=== PATIENT | female | born 1935 | race Caucasian/White ===

== ENCOUNTER 2022-04-22 10:48 | Inpatient (IN) | payer OTHER ==
[2022-04-17 12:25] LABS: BASOPHILS # (AUTO) 0.1 X10'3 (0-0.2); BASOPHILS % (AUTO) 0.9 % (0-1); CLARITY,URINE CLEAR (Clear); COLOR,URINE YELLOW (Yellow); EOSINOPHILS # (AUTO) 0.1 X10'3 (0-0.9); EOSINOPHILS % (AUTO) 1.6 % (0-6); GLUCOSE, URINE NEGATIVE (Neg); KETONES,URINE NEGATIVE (Neg); LEUKOCYTE ESTERASE ,URINE NEGATIVE (Neg); LYMPHOCYTES # (AUTO) 1.6 X10'3 (1.1-4.8); MEAN CORPUSCULAR HEMOGLOBIN 28.7 PG (27.0-31.0); MEAN PLATELET VOLUME 8.4 FL (7.4-10.4); MONOCYTES # (AUTO) 0.8 X10'3 (0-0.9); MONOCYTES % (AUTO) 9.7 % (2-12); NEUTROPHILS # (AUTO) 5.6 X10'3 (1.8-7.7); NEUTROPHILS % (AUTO) 67.8 % (42-75); NITRITES, URINE NEGATIVE (Neg); OCCULT BLOOD,URINE NEGATIVE (Neg); PRE OP HEMATOCRIT 32.5 % (35.0-45.0); PRE OP PLATELET COUNT 346 X10'3 (140-440); PROTEIN,URINE NEGATIVE (Neg); RED BLOOD COUNT 3.74 X10'6 (4.20-5.60); RED CELL DISTRIBUTION WIDTH 14.2 % (11.5-14.5); UROBILINOGEN,URINE 0.2 E.U/dL (0.2-1.0)
[2022-04-17 12:27] LABS: PRE OP HEMOGLOBIN 10.7 g/dL (12.0-16.0)
[2022-04-17 12:29] LABS: UA COLLECTION TYPE CLN CATCH MIDSTREAM
[2022-04-17 12:53] LABS: ALBUMIN 3.1 G/DL (3.4-5.0); ALBUMIN/GLOBULIN RATIO 0.8 (1.1-1.5); ALKALINE PHOSPHATASE 94 IU/L (46-116); BLOOD UREA NITROGEN 11 MG/DL (7-18); BUN/CREATININE RATIO 15.1 (6.6-38.0); CALCIUM 9.1 MG/DL (8.5-10.1); CHLORIDE 99 MMOL/L (99-107); CREATININE 0.73 MG/DL (0.40-0.90); PRE OP ALT 15 U/L (30-65); PRE OP ANION GAP 6 (8-16); PRE OP AST 17 U/L (10-37); PRE OP BILIRUB, TOTAL 0.5 MG/DL (0.0-1.0); PRE OP GLUCOSE 110 MG/DL (70-104); PRE OP SODIUM 138 MMOL/L (135-145); TOTAL CARBON DIOXIDE 32.7 MMOL/L (24-32); TOTAL PROTEIN 6.8 G/DL (6.4-8.2); eGFR 76 ML/MIN
[2022-04-17 12:55] LABS: PRE OP POTASSIUM 2.7 MMOL/L (3.4-5.1)
[2022-04-22] VITALS (16 sets, daily range): BP systolic 143–171; BP diastolic 68–92
[~2022-04-22] VITALS: Ht 157.5 cm; Wt 49.4 kg
[~2022-04-22 10:48] MED LIST: AMIT10TA6 PO; AMLO5TAB16 PO; ATOR40TA72 PO; AZIL40TA PO; CLOP75TA34 PO; DOPamine/D5W 400mg/250ml bag IV ONE; amiodarone 50MG/ML inj IV ONE; calcium chloride 100 MG/1 ML inj IV ONE; ceFAZolin inj. 2,000 MG in dextrose 5%-water 100 ML IV ONE; epiNEPHrine 0.1mg/ml 10ml syringe ONE; famotidine 20mg tablet PO ONE; sodium bicarbonate (8.4%) 1 mEq/ml syringe ONE
--- NOTE | 2022-04-22 11:20 | NUR ---
I WAS CALLED TO THE HALLWAY BY [facility], FOUND PT LYING FACE DOWN IN THE HALLWAY. [facility] STATES PT WAS WALKING WITH HER FROM ADMITTING TO THE PAS UNIT AND APPEARED TO TRIP ON HER FLIP FLOPS, WAS HOLDING A BAG TO HER CHEST AND FELL FACE DOWN. NO LOSS OF CONSCIOUSNESS NOTED. PT ANSWERED QUESTIONS APPROPRIATELY. LACERATIONS NOTED OVER AND UNDER LEFT EYE AND ON RIGHT KNUCKLES. PT DENIES NECK OR BACK PAIN, ROLLED SLOWLY TO HER BACK. AFTER LYING ON HER BACK PT STATES SHE FEELS BACK PAIN FROM THE "HARD FLOOR", ER CALLED TO ASSES PT- WAS TOLD TO BRING PT TO ER VIA GURNEY. PT ASSISTED TO HER FEET AND SHE AMBULATED TO A NEARBY GURNEY. LACERATIONS TO HAND AND FACE NO LONGER BLEEDING. PT TAKEN TO THE ER BED VIA GURNEY WITH PRESENT, REPORT GIVEN TO MARY ORDAZ WHO ASSUMED PT CARE AT 1135.
--- NOTE | 2022-04-22 14:05 | NUR ---
PT ARRIVED VIA W/C AFTER BEING MEDICALLY RELEASED FROM ER S/P FALL, SEE PREVIOUS NOTES. RT KNUCKLES WITH SMALL ABRASIONS NOTED, STERI-STRIP X1 BELOW LEFT EYE WITH SMALL AMT BRUISING PRESENT, LACERATION LEFT EYEBROW WITH APPRX 2 STITCHES - PLEASE REFER TO ER DOCUMENTATION. PT ALERT AND ORIENTED. AMBULATED TO BR, VOID QS, PRESENT. PER DR PADILLA, SURGERY TO PROCEED SCHEDULED. REFER TO PAS ADMIT FOR FURTHER DOCUMENTATION. Addendum: 04/22/22 at 1606 by Carolyn Espionsa RN Amended: Links added.
[2022-04-22] MEDS ORDERED: POTA-207 PO (14:36)
[2022-04-22] MEDS: ringers solution, lacted 1,000 ML IV SCH ×2 (14:38→20:39)
[2022-04-22 15:07] LABS: ISTAT ANION GAP 12 (8-12); ISTAT BUN 10 mg/dL (7-18); ISTAT CL 103 mmol/L (99-107); ISTAT CREATININE 0.6 mg/dL (0.6-1.1); ISTAT GLUCOSE 141 mg/dL (70-105); ISTAT HGB 14.3 g/dl (12.0-16.0); ISTAT Hct 42 %PCV (35-48); ISTAT IONIZED CALCIUM 1.26 mmol/L (1.03-1.32); ISTAT K 4.4 mmol/L (3.5-5.1); ISTAT NA 137 mmol/L (135-145); ISTAT TOTAL CO2 22 mmol/L (24-32); ISTAT eGFR > 90 ML/MIN; POC BUN/CREATININE RATIO 16.7 (6.6-38.0)
[2022-04-22] MEDS ORDERED: labetalol 20mg/4ml (5mg/ml) syringe IV PRN (15:25)
[2022-04-22] MEDS ORDERED: hydrALAZINE 20mg/ml inj. IV PRN (15:25)
[2022-04-22] MEDS ORDERED: ringers solution, lacted 1,000 ML IV SCH (15:25)
[2022-04-22] MEDS ORDERED: morphine 4 MG/ML inj SYRINge IV PRN (15:25)
[2022-04-22] MEDS ORDERED: fentaNYL/PF 50MCG/1 ML 2ML syringe IV PRN ×2 (15:25)
[2022-04-22] MEDS ORDERED: ondansetron/PF 4mg/2ml inj IV PRN ×2 (15:25→17:40)
[2022-04-22] MEDS ORDERED: BUPIVAcaine/PF 2.5 mg/ml (0.25%) 30ml vial ONE (16:45)
[2022-04-22] MEDS ORDERED: dexamethasone sod phosphate 10mg/ml inj ONE (17:09)
[2022-04-22] MEDS ORDERED: sevoflurane 250ml liquid IH ONE (17:09)
[2022-04-22] MEDS ORDERED: fentaNYL/PF 50MCG/1 ML 2ML syringe ONE (17:15)
[2022-04-22] MEDS ORDERED: midazolam 1 mg/ML 2ml injection ONE (17:15)
[2022-04-22] MEDS ORDERED: rocuronium 10mg/ml inj IV ONE (17:20)
[2022-04-22] MEDS ORDERED: LIDOcaine 1%/PF 5ML 10 MG/ML VIAL ONE (17:20)
[2022-04-22] MEDS ORDERED: ondansetron/PF 4mg/2ml inj ONE (17:20)
[2022-04-22] MEDS ORDERED: propofol inj 20 ML IV ONE (17:21)
[2022-04-22] MEDS ORDERED: POTASSIUM BICARB 20meq eff tab 20 MEQ TABLET.EFF PO PRN ×2 (17:40)
[2022-04-22] MEDS ORDERED: magnesium 4gm in 100ml NS 100 ML IV PRN (17:40)
[2022-04-22] MEDS ORDERED: metoclopramide 5 mg/ml inj IV PRN (17:40)
[2022-04-22] MEDS ORDERED: magnesium 2GM in 50ml NS 50 ML IV PRN (17:40)
[2022-04-22] MEDS ORDERED: magnesium Cl slow-release 64mg tablet PO PRN (17:40)
[2022-04-22] MEDS ORDERED: potassium CL 10mEq/100ml bag 100 ML IV PRN (17:40)
[2022-04-22] MEDS ORDERED: morphine 2 MG/ML inj. syringe IV PRN (17:40)
[2022-04-22] MEDS ORDERED: glycopyrrolate 0.2mg/ml inj ONE (17:50)
--- NOTE | 2022-04-22 18:03 | NUR ---
Received from OR via SURGICAL BED , accompanied by Anesthesiologist MIS and report given by Anesthesiolgist. PATIENT WITH 20G PIV IN LEFT UE RUNNING NS AT 10. ABDOMINAL DRESSINGS ARE ALL CDI AND G TUBE PRESENT. 10L MASK ON WITH 100% SATURATIONS. VSS. SCDS DONNED. Addendum: 04/22/22 at 1810 by Andrew Nielson RN, RN Amended: Links added.
--- NOTE | 2022-04-22 18:03 | NUR ---
Received from OR via SURGICAL BED , accompanied by Anesthesiologist MIS and report given by Anesthesiolgist. PATIENT WITH 20G PIV IN LEFT UE RUNNIN NS AT 10. VSS. GTUBE AND DRESSING PRESENT TO ABDOMEN THAT ARE CDI. SCDS DONNED AND POSITIONED TO COMFORT. Addendum: 04/22/22 at 1820 by Andrew Nielson RN, RN Amended: Links added.
[2022-04-22] MEDS: morphine 2 MG/ML inj. syringe IV PRN (18:29)
--- NOTE | 2022-04-22 19:03 | NUR ---
PATIENT HAS MET ALL CRITERIA FOR TRANSFER TO THE SURGICAL/[facility]/PCU/ORTHO/ICU FLOOR. VSS. DRESSINGS INTACT. BED LOW, CALL LIGHT PRESENT AND 2 RAILS UP. RN PRESENT TO ACCEPT CARE OF PATIENT AND REPORT HAS BEEN CALLED. ALL QUESTIONS ANSWERED TO ACCEPTING ORLIN BRYANT . Addendum: 04/22/22 at 1952 by Andrew Vasques - ORLIN RN Amended: Links added.
[2022-04-22] MEDS: K and/or MAG REPLACEMENT MC SCH (20:00)
--- NOTE | 2022-04-22 20:00 | NUR ---
patient oriented to room, given ice chips. and son at bedside. requests to be present when speech and dietary evaluate patient.
[2022-04-22] MEDS: normal saline 1000ml 1,000 ML IV SCH (20:39)
[2022-04-22] MEDS ORDERED: amitriptyline 10mg tablet PO SCH (21:00)
[2022-04-22] MEDS: acetaminophen 650mg rectal suppository RC PRN (22:41)
[2022-04-23] VITALS (7 sets, daily range): BP systolic 82–152; BP diastolic 36–77
--- NOTE | 2022-04-23 06:22 | NUR ---
reported to days. noted pt resting w/o distress. PT to work with patient this am. anticipate ST and dietary consult for gentle nutrition supplemental feedings.
[2022-04-23] MEDS: morphine 2 MG/ML inj. syringe IV PRN ×3 (06:55→20:24)
[2022-04-23 07:14] LABS: BASOPHILS % (AUTO) 0.4 % (0-1); EOSINOPHILS % (AUTO) 0 % (0-6); HEMATOCRIT 33.2 % (35.0-45.0); HEMOGLOBIN 10.8 g/dl (12.0-16.0); LYMPHOCYTES # (AUTO) 0.9 X10'3 (1.1-4.8); LYMPHOCYTES % (AUTO) 7.6 % (21-51); MEAN CORPUSCULAR HEMOGLOBIN 28.7 PG (27.0-31.0); MEAN CORPUSCULAR HGB CONC 32.7 g/dL (33.0-36.5); MEAN CORPUSCULAR VOLUME 87.9 FL (78-98); MEAN PLATELET VOLUME 8.9 FL (7.4-10.4); MONOCYTES # (AUTO) 0.6 X10'3 (0-0.9); MONOCYTES % (AUTO) 5.2 % (2-12); NEUTROPHILS # (AUTO) 10.5 X10'3 (1.8-7.7); NEUTROPHILS % (AUTO) 86.8 % (42-75); PLATELET COUNT 414 X10'3 (140-440); RED BLOOD COUNT 3.77 X10'6 (4.20-5.60); RED CELL DISTRIBUTION WIDTH 14.3 % (11.5-14.5); WHITE BLOOD COUNT 12.1 X10'3 (4.5-11.0)
[2022-04-23 07:31] LABS: ALANINE AMINOTRANSFERASE 14 U/L (12-78); ALBUMIN 2.9 G/DL (3.4-5.0); ALBUMIN/GLOBULIN RATIO 0.8 (1.1-1.5); ALKALINE PHOSPHATASE 94 IU/L (46-116); ANION GAP 9 (8-16); ASPARTATE AMINO TRANSFERASE 18 U/L (10-37); BILIRUBIN,TOTAL 0.7 MG/DL (0.1-1.0); BLOOD UREA NITROGEN 14 MG/DL (7-18); BUN/CREATININE RATIO 17.3 (6.6-38.0); CALCIUM 8.7 MG/DL (8.5-10.1); CHLORIDE 103 MMOL/L (99-107); CREATININE 0.81 MG/DL (0.40-0.90); GLUCOSE 140 MG/DL (70-104); MAGNESIUM 1.6 MG/DL (1.5-2.4); POTASSIUM 5.6 MMOL/L (3.5-5.1); SODIUM 136 MMOL/L (135-145); TOTAL CARBON DIOXIDE 23.8 MMOL/L (24-32); TOTAL PROTEIN 6.7 G/DL (6.4-8.2); eGFR 67 ML/MIN
[2022-04-23] MEDS: acetaminophen 650mg rectal suppository RC PRN (07:39)
[2022-04-23] MEDS ORDERED: AZILSARTAN MEDOXOMIL PO SCH (08:00)
[2022-04-23] MEDS: K and/or MAG REPLACEMENT MC SCH ×2 (08:00→20:00)
[2022-04-23] MEDS ORDERED: clopidogrel 75mg tablet PO SCH ×2 (08:00→10:53)
[2022-04-23] MEDS ORDERED: amLODIPine 5mg tablet PO SCH ×2 (08:00→10:52)
[2022-04-23] MEDS ORDERED: atorvastatin 20mg tablet PO SCH ×2 (08:00→10:53)
--- NOTE | 2022-04-23 09:36 | NUR ---
PAGER ID: [phone] MESSAGE: Josefa Remi [id number] NPO just had gtube placed. Can this pt. have her oral pills? Lisseth [phone]
--- NOTE | 2022-04-23 09:39 | NUR ---
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 Pt pending BSS with ST and s/p G-tube placement this admit. IBW +10% was used to calculate estimated nutrient needs as there's no documentation of how current wt was obtained, see TF recommendations below. Will adjust as appropriate pending scaled wt and BSS with ST should pt be appropriate for PO intake. Will continue to follow closely. Recommendations: 1) Continuous TF via G-tube using Jevity 1.2 with 55 mL/hr goal. To provide 1320 mL total volume/day, 1584 kcal, 73 g protein, and 1065 mL water 2) Additional 85 mL water flush Q4H; monitor serum Na 3) IF transitioning to bolus feeds: bolus feed TID using Jevity 1.2 with 2 cans (474 mL) BID and 1.5 cans (355 mL) QD. In total to provide 1303 mL total volume/day, 1567 kcal, 73 g protein, and 1050 mL water 4) IF bolus feeds: additional 55 mL before and after each bolus feed 5) Prealbumin q Wednesday/ 6) Daily scaled weights 7) Advance to regular diet as medically indicated if able to tolerate PO intake pending BSS with ST; monitor need to adjust TF recs if PO intake 8) Routine bowel USP BOLUS TF RECS: 1) Bolus feeding TID using Jevity 1.2 or equivalent. Begin at 124 mL bolus and advance by 50 mL each bolus feed as tolerated to goal: 2 cans (474 mL) BID and 1.5 cans (355 mL) QD totalling 5.5 cans (1303 mL total volume) 2) Additional 55 mL water flush before and after each bolus feed 3) Outpatient RD to titrate to goal rate and adjust recommendations as appropriate based on patient's estimated nutrient needs Addendum: 04/23/22 at [address] Amended: Links added.
--- NOTE | 2022-04-23 09:40 | NUR ---
Spoke with hospitalist on phone and he would like medications administered through g-tube. States he spoke with Arya yesterday and this was oked by surgeon. Call pharmacy to request order change and get clarification that medications can be crushed. Pharmacist states it will be about 20 min. before AM med PO orders switched to g-tube medications.
[2022-04-23] MEDS ORDERED: amitriptyline 10mg tablet NG SCH (10:12)
[2022-04-23] MEDS ORDERED: amLODIPine 5mg tablet NG SCH (10:13)
[2022-04-23] MEDS ORDERED: clopidogrel 75mg tablet NG SCH (10:20)
[2022-04-23] MEDS ORDERED: atorvastatin 20mg tablet NG SCH (10:20)
[2022-04-23] MEDS ORDERED: losartan 50mg tablet NG SCH (10:31)
[2022-04-23] MEDS ORDERED: HYDROcodone/acetaminophen 5mg/325mg tablet PO PRN (10:50)
[2022-04-23] MEDS ORDERED: losartan 50mg tablet PO SCH (10:53)
[2022-04-23 11:41] LABS: PREALBUMIN 15.3 MG/DL (19-36)
--- NOTE | 2022-04-23 14:12 | NUR ---
Tube feed started at 1400. 0 residual. Pt. tolerated 90ml water flush well. Rate will need to be changed to 55ml at 2200 if residuals and pt. allow. This will be goal rate for pt.
[2022-04-23] MEDS: normal saline 1000ml 1,000 ML IV SCH (14:32)
[2022-04-23] MEDS ORDERED: cefTRIAXone 1g/NS 100ml IVPB 100 ML IV SCH (16:35)
[2022-04-23] MEDS ORDERED: diatrozoate meglu/diatrozoate sod (37% iodine) 120ML oral solution PO ONE (16:45)
--- NOTE | 2022-04-23 16:55 | NUR ---
PAGER ID: [phone] MESSAGE: Josefa Khalil [id number] Cant take orders from a polygraph technician. Please call to clarify CT orders. Thanks Lisseth [phone]
[2022-04-23] MEDS ORDERED: diatr meglu/diatrizoate 30ml oral sol.-(3 dose) bottle PO SCH (17:25)
--- NOTE | 2022-04-23 17:44 | NUR ---
Pt. going down to CT. Tele aware.
--- NOTE | 2022-04-23 18:37 | NUR ---
Pt. bought back from CT scan. Rn who went down with pt. reports possible G-tube leak but CT scan report not up yet. G-tube feeding currently on hold. Report given to Paige ORDAZ.
[2022-04-23] MEDS: amitriptyline 10mg tablet PO SCH (20:24)
--- NOTE | 2022-04-23 20:39 | NUR ---
I spoke to and informed him that patient hadn't voided since this morning and bladder scan was >400 so he gave order for F/C. Also informed him what the CT scan showed regarding the Feeding Tube and he will call Dr Grabiel Dawn regarding this. I informed pt's nurse regarding this.
--- NOTE | 2022-04-23 21:00 | NUR ---
Patient in room ORTHO 4010. I have received report from ORLIN Wyatt and had the opportunity to ask questions and assume patient care.
[2022-04-23] MEDS ORDERED: FENTANYL CITRATE/PF 50 MCG/1 ML VIAL ONE (21:40)
[2022-04-23] MEDS ORDERED: midazolam 1 mg/ML 2ml injection ONE (21:40)
[2022-04-23] MEDS ORDERED: amiodarone in dextrose, iso-osm 360mg/200ml bag IV ONE (21:45)
[2022-04-23] MEDS ORDERED: sodium bicarbonate (8.4%) inj. 1 MEQ/ML ML ONE ×2 (21:45)
[2022-04-23] MEDS ORDERED: ePHEDrine 50MG/ML INJ. ONE ×2 (21:45)
[2022-04-23] MEDS ORDERED: calcium chloride 100 MG/1 ML inj IV ONE (21:45)
[2022-04-23] MEDS ORDERED: propofol 10mg/ml 20ml vial IV ONE (21:45)
[2022-04-23] MEDS ORDERED: DOPamine/D5W 400mg/250ml bag IV ONE (21:45)
[2022-04-23] MEDS ORDERED: LIDOcaine 1% (10mg/ml)w/preservative inj. 20ml MDV ONE (21:45)
[2022-04-23] MEDS ORDERED: atropine 0.1mg/ml 10ml syringe ONE (21:45)
[2022-04-23] MEDS ORDERED: rocuronium 10mg/ml inj IV ONE (21:47)
[2022-04-23 22:23] LABS: ABG BASE EXCESS -21.6 mmol/L (-2.0-2.0); ABG HCO3 7.4 mmol/L (22.0-26.0); ABG OXYGEN SATURATION 99.2 % (94-97); ABG PCO2 (T) 24.8 mmHg (32.0-45.0); ABG PO2 (T) 343.9 mmHg (75.0-100.0); FCOHb 0.2 % (0.0-3.9); FMetHb 0.4 % (0.0-1.5); FO2Hb 98.6 % (94-97); TOTAL HEMOGLOBIN 11.1 G/dl (12.0-16.0)
--- NOTE | 2022-04-23 23:01 | NUR ---
Problems reprioritized. Patient report given, questions answered & plan of care reviewed with ORLIN Ramirez in ICU.
[2022-04-23 23:32] LABS: BASOPHILS % (AUTO) 0.1 % (0-1); EOSINOPHILS % (AUTO) 0.2 % (0-6); HEMATOCRIT 28.6 % (35.0-45.0); HEMOGLOBIN 9.2 g/dl (12.0-16.0); LYMPHOCYTES # (AUTO) 1.8 X10'3 (1.1-4.8); LYMPHOCYTES % (AUTO) 34.7 % (21-51); MEAN CORPUSCULAR HEMOGLOBIN 29.2 PG (27.0-31.0); MEAN CORPUSCULAR HGB CONC 32.1 g/dL (33.0-36.5); MEAN CORPUSCULAR VOLUME 91.2 FL (78-98); MEAN PLATELET VOLUME 8.7 FL (7.4-10.4); MONOCYTES # (AUTO) 0.1 X10'3 (0-0.9); MONOCYTES % (AUTO) 2.3 % (2-12); NEUTROPHILS # (AUTO) 3.2 X10'3 (1.8-7.7); NEUTROPHILS % (AUTO) 62.7 % (42-75); PLATELET COUNT 316 X10'3 (140-440); RED BLOOD COUNT 3.13 X10'6 (4.20-5.60); RED CELL DISTRIBUTION WIDTH 14.7 % (11.5-14.5); WHITE BLOOD COUNT 5.1 X10'3 (4.5-11.0)
[2022-04-23 23:33] LABS: ABG BASE EXCESS -14.4 mmol/L (-2.0-2.0); ABG HCO3 11.7 mmol/L (22.0-26.0); ABG OXYGEN SATURATION 99.4 % (94-97); ABG PCO2 (T) 27.3 mmHg (32.0-45.0); ABG PO2 (T) 433.8 mmHg (75.0-100.0); FCOHb 0.2 % (0.0-3.9); FMetHb 0.4 % (0.0-1.5); FO2Hb 98.8 % (94-97); TOTAL HEMOGLOBIN 10.1 G/dl (12.0-16.0)
[2022-04-23 23:43] LABS: ALANINE AMINOTRANSFERASE 197 U/L (12-78); ALBUMIN 1.8 G/DL (3.4-5.0); ALBUMIN/GLOBULIN RATIO 0.8 (1.1-1.5); ALKALINE PHOSPHATASE 53 IU/L (46-116); ANION GAP 19 (8-16); ASPARTATE AMINO TRANSFERASE 313 U/L (10-37); BILIRUBIN,TOTAL 0.4 MG/DL (0.1-1.0); BLOOD UREA NITROGEN 23 MG/DL (7-18); BUN/CREATININE RATIO 15.9 (6.6-38.0); CALCIUM 8.6 MG/DL (8.5-10.1); CHLORIDE 106 MMOL/L (99-107); CREATININE 1.45 MG/DL (0.40-0.90); GLUCOSE 291 MG/DL (70-104); POTASSIUM 4.3 MMOL/L (3.5-5.1); SODIUM 143 MMOL/L (135-145); TOTAL CARBON DIOXIDE 17.9 MMOL/L (24-32); TOTAL PROTEIN 4.1 G/DL (6.4-8.2); eGFR 34 ML/MIN
[2022-04-23] MEDS ORDERED: NORepinephrine 8mg/ 250ml NS 250 ML IV ONE (23:49)
[2022-04-24] VITALS (34 sets, daily range): BP systolic 33–148; BP diastolic 20–58
[2022-04-24] MEDS ORDERED: phenylephrine inj 50 MG in normal saline 250ml IV soln 245 ML IV SCH ×2
[2022-04-24] MEDS ORDERED: vancomycin/NS 1 GM ADD-VANTAGE 250 ML IV ONE
[2022-04-24] MEDS ORDERED: DOPamine 400mg/D5W 250ml 250 ML IV SCH
[2022-04-24] MEDS ORDERED: NORepinephrine inj. 8 MG in dextrose 5%-water 242 ML IV SCH ×2
--- NOTE | 2022-04-24 | NUR ---
Patient in room CICU 2011. I have received report from Paige ORDAZ and OR Crew and had the opportunity to ask questions and assume patient care.
[2022-04-24 00:08] LABS: ABG BASE EXCESS -15.3 mmol/L (-2.0-2.0); ABG OXYGEN SATURATION 99.3 % (94-97); ABG PCO2 (T) 26.2 mmHg (32.0-45.0); ABG PO2 (T) 488.4 mmHg (75.0-100.0); FCOHb 0.2 % (0.0-3.9); FMetHb 0.5 % (0.0-1.5); FO2Hb 98.6 % (94-97); PATIENT TEMPERATURE 35.6; PEEP 5 cm H2O; RESPIRATORY RATE 20 b/min; TIDAL VOLUME 450 mL; TOTAL HEMOGLOBIN 10.3 G/dl (12.0-16.0)
[2022-04-24] MEDS ORDERED: magnesium 2GM in 50ml NS 50 ML IV PRN (00:15)
[2022-04-24] MEDS ORDERED: sodium phosphate inj. 30 MMOL in dextrose 5%-water 250 ML IV PRN (00:15)
[2022-04-24] MEDS ORDERED: magnesium Cl slow-release 64mg tablet PO PRN (00:15)
[2022-04-24] MEDS ORDERED: Neutra Phos packet PO PRN (00:15)
[2022-04-24] MEDS ORDERED: sodium phosphate inj. 15 MMOL in dextrose 5%-water 250 ML IV PRN (00:15)
[2022-04-24] MEDS ORDERED: albumin (human) 25% 100 ML IV solution IV ONE ×2 (00:15→13:50)
[2022-04-24] MEDS ORDERED: potassium Cl 20 mEq SR tablet PO PRN ×2 (00:15)
[2022-04-24] MEDS ORDERED: magnesium 4gm in 100ml NS 100 ML IV PRN (00:15)
[2022-04-24] MEDS: sodium bicarbonate (8.4%) inj. 150 MEQ in dextrose 5%-water 1,000 ML IV SCH ×3 (01:01→21:19)
[2022-04-24] MEDS: ringers solution, lacted 1,000 ML IV SCH ×3 (01:01→22:38)
[2022-04-24] MEDS: piperacillin/tazo 3.375gm/50ml 50 ML IV SCH ×3 (01:03→16:21)
[2022-04-24 01:18] LABS: NUCLEATED RED BLOOD CELLS 2 /100WBC (0-0); TOTAL CELLS COUNTED 100
[2022-04-24 01:19] LABS: SMUDGE CELLS 2+
[2022-04-24 01:20] LABS: ANISOCYTOSIS 1+; PLATELET ESTIMATE NORMAL
[2022-04-24 01:21] LABS: LARGE PLATELETS FEW
[2022-04-24] MEDS: epiNEPHrine inj 5 MG, calcium chloride inj. 1,000 MG in normal saline 250ml IV soln 235 ML IV PRN ×3 (02:44→21:19)
[2022-04-24 03:10] LABS: BASOPHILS % (AUTO) 0.2 % (0-1); EOSINOPHILS % (AUTO) 0.2 % (0-6); HEMATOCRIT 30.5 % (35.0-45.0); HEMOGLOBIN 9.5 g/dl (12.0-16.0); LYMPHOCYTES # (AUTO) 0.8 X10'3 (1.1-4.8); LYMPHOCYTES % (AUTO) 28.1 % (21-51); MEAN CORPUSCULAR HEMOGLOBIN 29.4 PG (27.0-31.0); MEAN CORPUSCULAR HGB CONC 31.3 g/dL (33.0-36.5); MEAN PLATELET VOLUME 8.8 FL (7.4-10.4); MONOCYTES # (AUTO) 0.1 X10'3 (0-0.9); MONOCYTES % (AUTO) 2.8 % (2-12); NEUTROPHILS # (AUTO) 2.1 X10'3 (1.8-7.7); NEUTROPHILS % (AUTO) 68.7 % (42-75); PLATELET COUNT 308 X10'3 (140-440); RED BLOOD COUNT 3.24 X10'6 (4.20-5.60); RED CELL DISTRIBUTION WIDTH 15.8 % (11.5-14.5)
[2022-04-24 03:16] LABS: ALANINE AMINOTRANSFERASE 480 U/L (12-78); ALBUMIN 3.3 G/DL (3.4-5.0); ALBUMIN/GLOBULIN RATIO 1.4 (1.1-1.5); ALKALINE PHOSPHATASE 63 IU/L (46-116); ANION GAP 27 (8-16); ASPARTATE AMINO TRANSFERASE 830 U/L (10-37); BILIRUBIN,TOTAL 1.1 MG/DL (0.1-1.0); BLOOD UREA NITROGEN 23 MG/DL (7-18); BUN/CREATININE RATIO 15.2 (6.6-38.0); CALCIUM 9.4 MG/DL (8.5-10.1); CHLORIDE 102 MMOL/L (99-107); CREATININE 1.51 MG/DL (0.40-0.90); GLUCOSE 244 MG/DL (70-104); POTASSIUM 4.4 MMOL/L (3.5-5.1); SODIUM 139 MMOL/L (135-145); TOTAL PROTEIN 5.7 G/DL (6.4-8.2); eGFR 33 ML/MIN
[2022-04-24 03:21] LABS: TOTAL CARBON DIOXIDE 10.3 MMOL/L (24-32)
[2022-04-24 03:27] LABS: ABG BASE EXCESS -19.9 mmol/L (-2.0-2.0); ABG HCO3 7.3 mmol/L (22.0-26.0); ABG OXYGEN SATURATION 98.5 % (94-97); ABG PO2 (T) 149.8 mmHg (75.0-100.0); FCOHb 0.2 % (0.0-3.9); FMetHb 0.4 % (0.0-1.5); FO2Hb 97.9 % (94-97); PATIENT TEMPERATURE 32.7; PEEP 5 cm H2O; RESPIRATORY RATE 24 b/min; TIDAL VOLUME 450 mL; TOTAL HEMOGLOBIN 9.7 G/dl (12.0-16.0)
[2022-04-24] MEDS ORDERED: normal saline 1000ml 1,000 ML IVB ONE (03:45)
--- NOTE | 2022-04-24 03:47 | NUR ---
Called Critical Values of bicarb-7.3 and lactic of 19 to Von Vivar DNP. Orders received for 1L NS bolus. NO additional orders at this time.
[2022-04-24] MEDS: mineral oil/petrolatum ophthal oint EACHEYE SCH ×4 (03:52→16:21)
[2022-04-24 03:58] LABS: NUCLEATED RED BLOOD CELLS 2 /100WBC (0-0); TOTAL CELLS COUNTED 100
[2022-04-24 03:59] LABS: ANISOCYTOSIS 1+; PLATELET ESTIMATE NORMAL; POIKILOCYTOSIS 1+; SMUDGE CELLS 1+
[2022-04-24] MEDS: NORepinephrine 8mg/ 250ml NS 250 ML IV SCH ×2 (05:38→08:49)
[2022-04-24] MEDS: K, MAG and/or Phos replacement - Verify level? MC SCH ×2 (06:00→08:00)
--- NOTE | 2022-04-24 06:13 | NUR ---
Problems reprioritized. Patient report given, questions answered & plan of care reviewed with Abhilash ORDAZ.
[2022-04-24 06:49] LABS: ANION GAP 28 (8-16); BLOOD UREA NITROGEN 21 MG/DL (7-18); BUN/CREATININE RATIO 14.2 (6.6-38.0); CALCIUM 9.2 MG/DL (8.5-10.1); CHLORIDE 103 MMOL/L (99-107); CREATININE 1.48 MG/DL (0.40-0.90); GLUCOSE 216 MG/DL (70-104); POTASSIUM 4.6 MMOL/L (3.5-5.1); SODIUM 141 MMOL/L (135-145); eGFR 34 ML/MIN
[2022-04-24 06:52] LABS: TOTAL CARBON DIOXIDE 9.7 MMOL/L (24-32)
[2022-04-24] MEDS ORDERED: sodium bicarbonate (8.4%) 1 mEq/ml syringe ONE ×2 (07:23→07:28)
[2022-04-24 07:37] LABS: PHOSPHORUS 6.9 MG/DL (2.3-4.5)
[2022-04-24] MEDS ORDERED: sodium bicarbonate (8.4%) 1 mEq/ml syringe IV ONE ×4 (07:45→13:10)
--- NOTE | 2022-04-24 07:55 | NUR ---
Pt maxed on Epi, dopamine, levophed. Called dr merino due to hypotension. Ordered to give 4 amps bicarb and start shelbi.
[2022-04-24] MEDS ORDERED: DOBUTamine-DoBUTrex 500mg/D5W 250 ML IV SCH ×2 (08:00→08:19)
[2022-04-24] MEDS ORDERED: heparin, porcine 5000 units/ml vial SQ SCH (08:00)
[2022-04-24] MEDS ORDERED: pantoprazole 40MG/NS 100ML BAG 100 ML IV SCH (08:00)
[2022-04-24] MEDS: K and/or MAG REPLACEMENT MC SCH ×2 (08:00→20:00)
[2022-04-24] MEDS ORDERED: DOBUTamine-DoBUTrex 500mg/D5W 250 ML IV ONE (08:02)
[2022-04-24 08:59] LABS: ABG BASE EXCESS -10.7 mmol/L (-2.0-2.0); ABG HCO3 14.4 mmol/L (22.0-26.0); ABG OXYGEN SATURATION 97.9 % (94-97); ABG PCO2 (T) 24.4 mmHg (32.0-45.0); ABG PO2 (T) 106.3 mmHg (75.0-100.0); FCOHb 0.3 % (0.0-3.9); FMetHb 0.4 % (0.0-1.5); FO2Hb 97.2 % (94-97); PEEP 5 cm H2O; RESPIRATORY RATE 24 b/min; TIDAL VOLUME 450 mL; TOTAL HEMOGLOBIN 8.2 G/dl (12.0-16.0)
[2022-04-24] MEDS: normal saline 1000ml 1,000 ML IV SCH (09:40)
[2022-04-24] MEDS ORDERED: dexmedetomidin/NS 400mcg/100ml 100 ML IV SCH (11:15)
[2022-04-24] MEDS: NORepinephrine inj. 32 MG in normal saline 250ml IV soln 218 ML IV SCH (11:48)
--- NOTE | 2022-04-24 11:57 | NUR ---
Dr Tran at bedside, started TCpacing. Consent signed to place TVpacer.
[2022-04-24 12:25] LABS: ALBUMIN 2.4 G/DL (3.4-5.0); ANION GAP 30 (8-16); BLOOD UREA NITROGEN 22 MG/DL (7-18); BUN/CREATININE RATIO 15.7 (6.6-38.0); CHLORIDE 105 MMOL/L (99-107); GLUCOSE 123 MG/DL (70-104); POTASSIUM 3.7 MMOL/L (3.5-5.1); SODIUM 144 MMOL/L (135-145); eGFR 36 ML/MIN
[2022-04-24 12:27] LABS: TOTAL CARBON DIOXIDE 9.3 MMOL/L (24-32)
[2022-04-24] MEDS ORDERED: albumin (human) 25% 100ml IV 100 ML IV ONE (13:46)
[2022-04-24 14:13] LABS: HEMATOCRIT 28.3 % (35.0-45.0); HEMOGLOBIN 9.3 g/dl (12.0-16.0); MEAN CORPUSCULAR HGB CONC 32.8 g/dL (33.0-36.5); MEAN PLATELET VOLUME 7.7 FL (7.4-10.4); WHITE BLOOD COUNT 1.4 X10'3 (4.5-11.0)
[2022-04-24 14:15] LABS: BASOPHILS % (AUTO) 0.2 % (0-1); EOSINOPHILS % (AUTO) 0.2 % (0-6); LYMPHOCYTES # (AUTO) 0.4 X10'3 (1.1-4.8); LYMPHOCYTES % (AUTO) 28.5 % (21-51); MEAN CORPUSCULAR HEMOGLOBIN 28.7 PG (27.0-31.0); MEAN CORPUSCULAR VOLUME 87.4 FL (78-98); MONOCYTES % (AUTO) 3.4 % (2-12); NEUTROPHILS % (AUTO) 67.7 % (42-75); PLATELET COUNT 144 X10'3 (140-440); RED BLOOD COUNT 3.23 X10'6 (4.20-5.60); RED CELL DISTRIBUTION WIDTH 15.3 % (11.5-14.5)
[2022-04-24 14:21] LABS: ABG BASE EXCESS -6.4 mmol/L (-2.0-2.0); ABG HCO3 16.7 mmol/L (22.0-26.0); ABG OXYGEN SATURATION 95.8 % (94-97); ABG PCO2 (T) 21.7 mmHg (32.0-45.0); ABG PO2 (T) 62.2 mmHg (75.0-100.0); FCOHb 0.2 % (0.0-3.9); FMetHb 0.2 % (0.0-1.5); FO2Hb 95.4 % (94-97); PATIENT TEMPERATURE 33.1; PEEP 5 cm H2O; RESPIRATORY RATE 14 b/min; TIDAL VOLUME 400 mL
[2022-04-24] MEDS ORDERED: heparin 10,000 units/1 ML INJ IV ONE ×2 (14:50→18:00)
--- NOTE | 2022-04-24 14:54 | NUR ---
Reassessment: Pt G-tube pulled out of place s/p return to OR for new G-tube placement yesterday though coded in OR per EMR. Pt does have new G-tube in place though currently intubated, cooling, and on multiple pressors w/ MAP 61 this AM per EMR. Pt remains NPO at this time. TF recs below in case to start nutrition on vent. Noted pt hx T2DM on no meds w/ Glu 215-244mg/dl this AM per EMR; may benefit from A1C this admit as no A1C hx if MD agreeable. LBM 04/21. Will monitor for further nutrition intervention needs. Recommendations: 1) IF TF via G-tube; Vital AF at 55ml/hr would provide 1320ml volume/day, 1584 kcals, 1071ml water, and 99g protein. 2) IF TF; additional water flush 100ml Q4H 3) Prealbumin q Wednesday/ 4) IF pt extubated; Continuous TF via G-tube using Jevity 1.2 at 55 mL/hr goal. Would provide 1320 mL total volume/day, 1584 kcal, 73 g protein, and 1065 mL water 5) IF transitioning to bolus feeds upon extubation: bolus feed TID using Jevity 1.2 with 2 cans (474 mL) BID and 1.5 cans (355 mL) QD. In total to provide 1303 mL total volume/day, 1567 kcal, 73 g protein, and 1050 mL water 6) Scaled wt this admit; subsequent daily wts 7) routine bowel care 8) upon extubation; advance to regular diet as medically indicated per [employer]/MD recs HOME BOLUS TF RECS: 1) Bolus feeding TID using Jevity 1.2 or equivalent. Begin at 124 mL bolus and advance by 50 mL each bolus feed as tolerated to goal: 2 cans (474 mL) BID and 1.5 cans (355 mL) QD totalling 5.5 cans (1303 mL total volume) 2) Additional 55 mL water flush before and after each bolus feed 3) Outpatient RD to titrate to goal rate and adjust recommendations as appropriate based on patient's estimated nutrient needs Addendum: 04/24/22 at [address] Amended: Links added.
[2022-04-24 16:17] LABS: BASOPHILS % (AUTO) 0.2 % (0-1); EOSINOPHILS % (AUTO) 0.1 % (0-6); HEMOGLOBIN 9.9 g/dl (12.0-16.0); LYMPHOCYTES # (AUTO) 0.4 X10'3 (1.1-4.8); LYMPHOCYTES % (AUTO) 24.3 % (21-51); MEAN CORPUSCULAR HGB CONC 33.1 g/dL (33.0-36.5); MEAN CORPUSCULAR VOLUME 87.6 FL (78-98); MEAN PLATELET VOLUME 7.7 FL (7.4-10.4); MONOCYTES % (AUTO) 3.4 % (2-12); PLATELET COUNT 159 X10'3 (140-440); RED BLOOD COUNT 3.43 X10'6 (4.20-5.60); RED CELL DISTRIBUTION WIDTH 15.5 % (11.5-14.5); WHITE BLOOD COUNT 1.4 X10'3 (4.5-11.0)
[2022-04-24 16:40] LABS: ABG BASE EXCESS -8.5 mmol/L (-2.0-2.0); ABG HCO3 14.9 mmol/L (22.0-26.0); ABG OXYGEN SATURATION 95.7 % (94-97); ABG PCO2 (T) 22.5 mmHg (32.0-45.0); ABG PO2 (T) 72.9 mmHg (75.0-100.0); FCOHb 0.3 % (0.0-3.9); FMetHb 0.3 % (0.0-1.5); FO2Hb 95.1 % (94-97); PATIENT TEMPERATURE 34.9; PEEP 5 cm H2O; RESPIRATORY RATE 14 b/min; TIDAL VOLUME 400 mL; TOTAL HEMOGLOBIN 10.9 G/dl (12.0-16.0)
[2022-04-24] MEDS ORDERED: heparin 1,000 units/ml 10ml inj HE ONE ×2 (16:50)
[2022-04-24] MEDS ORDERED: heparin 10,000 units/1 ML INJ IV PRN (18:00)
[2022-04-24] MEDS ORDERED: heparin 25,000 UNIT/250ml bag 250 ML IV SCH ×2 (18:00→18:11)
--- NOTE | 2022-04-24 18:30 | NUR ---
Patient in room CICU 2011. I have received report from Abhilash ORDAZ and had the opportunity to ask questions and assume patient care.
[2022-04-24 19:31] LABS: ABG BASE EXCESS -8.3 mmol/L (-2.0-2.0); ABG HCO3 15.7 mmol/L (22.0-26.0); ABG OXYGEN SATURATION 95.9 % (94-97); ABG PCO2 (T) 25.4 mmHg (32.0-45.0); FCOHb 0.3 % (0.0-3.9); FMetHb 0.3 % (0.0-1.5); FO2Hb 95.3 % (94-97); PEEP 5 cm H2O; RESPIRATORY RATE 14 b/min; TIDAL VOLUME 400 mL; TOTAL HEMOGLOBIN 11.5 G/dl (12.0-16.0)
[2022-04-24 19:51] LABS: HEMATOCRIT 32.5 % (35.0-45.0); HEMOGLOBIN 10.7 g/dl (12.0-16.0); LYMPHOCYTES # (AUTO) 0.4 X10'3 (1.1-4.8); MONOCYTES # (AUTO) 0.1 X10'3 (0-0.9)
[2022-04-24 20:17] LABS: BASOPHILS % (AUTO) 0.1 % (0-1); EOSINOPHILS % (AUTO) 0.2 % (0-6); MEAN CORPUSCULAR HEMOGLOBIN 28.8 PG (27.0-31.0); MEAN CORPUSCULAR VOLUME 87.3 FL (78-98); MEAN PLATELET VOLUME 8.5 FL (7.4-10.4); MONOCYTES % (AUTO) 3.3 % (2-12); NEUTROPHILS # (AUTO) 1.4 X10'3 (1.8-7.7); NEUTROPHILS % (AUTO) 74.4 % (42-75); PLATELET COUNT 174 X10'3 (140-440); RED BLOOD COUNT 3.72 X10'6 (4.20-5.60); WHITE BLOOD COUNT 1.9 X10'3 (4.5-11.0)
[2022-04-24 20:32] LABS: ALBUMIN 2.6 G/DL (3.4-5.0); ALBUMIN/GLOBULIN RATIO 1.7 (1.1-1.5); ALKALINE PHOSPHATASE 50 IU/L (46-116); ANION GAP 32 (8-16); BLOOD UREA NITROGEN 26 MG/DL (7-18); BUN/CREATININE RATIO 14.8 (6.6-38.0); CALCIUM 9.4 MG/DL (8.5-10.1); CHLORIDE 104 MMOL/L (99-107); CREATININE 1.76 MG/DL (0.40-0.90); GLUCOSE 80 MG/DL (70-104); MAGNESIUM 1.7 MG/DL (1.5-2.4); POTASSIUM 3.6 MMOL/L (3.5-5.1); SODIUM 152 MMOL/L (135-145); TOTAL CARBON DIOXIDE 16.2 MMOL/L (24-32); TOTAL PROTEIN 4.1 G/DL (6.4-8.2); eGFR 27 ML/MIN
[2022-04-24] MEDS: amitriptyline 10mg tablet PO SCH (21:00)
[2022-04-24] MEDS: vasopressin inj. 40 UNIT in dextrose 5%-water 50ml 38 ML IV SCH (21:17)
[2022-04-24 21:18] LABS: ABG BASE EXCESS -8.8 mmol/L (-2.0-2.0); ABG HCO3 14.9 mmol/L (22.0-26.0); ABG OXYGEN SATURATION 95.8 % (94-97); ABG PCO2 (T) 23.8 mmHg (32.0-45.0); ABG PO2 (T) 74.7 mmHg (75.0-100.0); FCOHb 0.3 % (0.0-3.9); FMetHb 0.3 % (0.0-1.5); FO2Hb 95.2 % (94-97); PEEP 5 cm H2O; RESPIRATORY RATE 14 b/min; TIDAL VOLUME 400 mL; TOTAL HEMOGLOBIN 11.6 G/dl (12.0-16.0)
[2022-04-24 21:23] LABS: ALANINE AMINOTRANSFERASE 1333 U/L (12-78); ASPARTATE AMINO TRANSFERASE 3001 U/L (10-37)
[2022-04-25] VITALS (9 sets, daily range): BP systolic 47–131; BP diastolic 20–38
[2022-04-25 00:39] LABS: BASOPHILS % (AUTO) 0.1 % (0-1); EOSINOPHILS % (AUTO) 1.4 % (0-6); HEMATOCRIT 30.5 % (35.0-45.0); HEMOGLOBIN 10.1 g/dl (12.0-16.0); LYMPHOCYTES # (AUTO) 0.6 X10'3 (1.1-4.8); MEAN CORPUSCULAR HEMOGLOBIN 29.3 PG (27.0-31.0); MEAN CORPUSCULAR HGB CONC 33.1 g/dL (33.0-36.5); MEAN CORPUSCULAR VOLUME 88.3 FL (78-98); MEAN PLATELET VOLUME 8.8 FL (7.4-10.4); MONOCYTES # (AUTO) 0.2 X10'3 (0-0.9); NEUTROPHILS # (AUTO) 2.4 X10'3 (1.8-7.7); NEUTROPHILS % (AUTO) 74.5 % (42-75); PLATELET COUNT 162 X10'3 (140-440); RED BLOOD COUNT 3.46 X10'6 (4.20-5.60); RED CELL DISTRIBUTION WIDTH 15.9 % (11.5-14.5); WHITE BLOOD COUNT 3.3 X10'3 (4.5-11.0)
[2022-04-25] MEDS ORDERED: vancomycin inj 500 MG in normal saline 100ml IV soln 100 ML IV SCH (01:00)
[2022-04-25 01:18] LABS: ABG BASE EXCESS -13.1 mmol/L (-2.0-2.0); ABG HCO3 10.6 mmol/L (22.0-26.0); ABG OXYGEN SATURATION 95.7 % (94-97); ABG PO2 (T) 77.9 mmHg (75.0-100.0); FCOHb 0.2 % (0.0-3.9); FMetHb 0.2 % (0.0-1.5); FO2Hb 95.3 % (94-97); PATIENT TEMPERATURE 35.1; PEEP 5 cm H2O; RESPIRATORY RATE 14 b/min; TIDAL VOLUME 400 mL; TOTAL HEMOGLOBIN 10.2 G/dl (12.0-16.0)
[2022-04-25] MEDS: NORepinephrine inj. 32 MG in normal saline 250ml IV soln 218 ML IV SCH (01:57)
[2022-04-25] MEDS: mineral oil/petrolatum ophthal oint EACHEYE SCH ×3 (02:01→04:32)
[2022-04-25] MEDS ORDERED: dextrose 50%-water 50ml dispensing syringe IV ONE ×2 (02:23→04:30)
[2022-04-25 02:36] LABS: BASOPHILS % (AUTO) 0.1 % (0-1); EOSINOPHILS # (AUTO) 0.1 X10'3 (0-0.9); EOSINOPHILS % (AUTO) 1.3 % (0-6); HEMATOCRIT 28.7 % (35.0-45.0); HEMOGLOBIN 9.4 g/dl (12.0-16.0); LYMPHOCYTES # (AUTO) 0.7 X10'3 (1.1-4.8); LYMPHOCYTES % (AUTO) 18.3 % (21-51); MEAN CORPUSCULAR HEMOGLOBIN 28.7 PG (27.0-31.0); MEAN CORPUSCULAR HGB CONC 32.6 g/dL (33.0-36.5); MONOCYTES # (AUTO) 0.2 X10'3 (0-0.9); MONOCYTES % (AUTO) 4.9 % (2-12); NEUTROPHILS % (AUTO) 75.4 % (42-75); PLATELET COUNT 150 X10'3 (140-440); RED BLOOD COUNT 3.27 X10'6 (4.20-5.60); RED CELL DISTRIBUTION WIDTH 17.2 % (11.5-14.5); WHITE BLOOD COUNT 3.9 X10'3 (4.5-11.0)
[2022-04-25 02:42] LABS: ANISOCYTOSIS 1+; PLATELET ESTIMATE NORMAL; TOTAL CELLS COUNTED 100
[2022-04-25 02:55] LABS: ALBUMIN 2.1 G/DL (3.4-5.0); ALBUMIN/GLOBULIN RATIO 1.4 (1.1-1.5); ALKALINE PHOSPHATASE 62 IU/L (46-116); ANION GAP 37 (8-16); BILIRUBIN,TOTAL 3.2 MG/DL (0.1-1.0); BLOOD UREA NITROGEN 29 MG/DL (7-18); BUN/CREATININE RATIO 15.4 (6.6-38.0); CALCIUM 9.7 MG/DL (8.5-10.1); CHLORIDE 103 MMOL/L (99-107); CREATININE 1.88 MG/DL (0.40-0.90); GLUCOSE 53 MG/DL (70-104); MAGNESIUM 1.9 MG/DL (1.5-2.4); SODIUM 150 MMOL/L (135-145); TOTAL PROTEIN 3.6 G/DL (6.4-8.2); eGFR 25 ML/MIN
[2022-04-25 03:02] LABS: POTASSIUM 6.1 MMOL/L (3.5-5.1)
[2022-04-25 03:03] LABS: TOTAL CARBON DIOXIDE 9.8 MMOL/L (24-32)
[2022-04-25 03:09] LABS: ALANINE AMINOTRANSFERASE 2767 U/L (12-78); ASPARTATE AMINO TRANSFERASE > 7000 U/L (10-37)
--- NOTE | 2022-04-25 03:15 | NUR ---
PARAMEDIC Von notified of patient's critical labs, LA 30.5, K 6.1, CO2 9.8 and ABG HCO3 8.3, pH 7.29, orders received and implemented.
[2022-04-25] MEDS: vasopressin inj. 40 UNIT in dextrose 5%-water 50ml 38 ML IV SCH (03:17)
[2022-04-25 03:34] LABS: ABG BASE EXCESS -16.7 mmol/L (-2.0-2.0); ABG HCO3 8.3 mmol/L (22.0-26.0); ABG OXYGEN SATURATION 93.8 % (94-97); ABG PCO2 (T) 17.2 mmHg (32.0-45.0); FCOHb 0.2 % (0.0-3.9); FMetHb 0.4 % (0.0-1.5); FO2Hb 93.2 % (94-97); PATIENT TEMPERATURE 35.1; PEEP 5 cm H2O; RESPIRATORY RATE 14 b/min; TIDAL VOLUME 400 mL; TOTAL HEMOGLOBIN 9.4 G/dl (12.0-16.0)
[2022-04-25] MEDS ORDERED: piperacillin/tazo 3.375gm/50ml 50 ML IV SCH (04:00)
[2022-04-25] MEDS ORDERED: insulin regular, human 10 units/0.1 ml syringe IV ONE (04:30)
[2022-04-25] MEDS ORDERED: calcium gluconate inj. 1 GM in normal saline 100ml IV soln 100 ML IV ONE (04:30)
[2022-04-25] MEDS ORDERED: sodium bicarbonate (8.4%) 1 mEq/ml syringe IV ONE (04:30)
[2022-04-25] MEDS ORDERED: CALCIUM GLUC 1gm/50ml NACL,iso 50 ML IV ONE (05:15)
--- NOTE | 2022-04-25 06:09 | NUR ---
Around 0520 the patient went into asystole, CPR was started and a code was called. The code team arrived accompanied by Dr. Patel, CPR, epinephrine x5, Bicarb x1, CaCL X1 given while being ventilated via ambu bag. Pulse check/rhythm check performed every 2 mins, pt remained in asystole through out code. Code called at 0539. Pt's and daughter were notified via telephone and told that they can come in. Donor network called.
--- NOTE | 2022-04-25 13:30 | NUR ---
All pt belongings accounted for with family prior to family's departure. All family questions/concerns answer prior to departure. Dariusz & lea called. Pt taken at 1332 with Kathryn.
[2022-04-28] MEDS ORDERED: VANCOMYCIN LEVEL IV ONE (00:30)
== END 2022-04-25 05:20 | DRG 853 ==
LOC: PAS 10:48 → ORTHO 4S 17:37 → CICU 2S 04-23 23:00
PROVIDERS: ADMIT Family Medicine; ATTEND Surgery
PROC: 0D20XUZ Change Feeding Device in Upper Intestinal Tract, External Approach (ICD-10-PCS; 2022-04-23)
PROC: 5A12012 Performance of Cardiac Output, Single, Manual (ICD-10-PCS; 2022-04-23)
PROC: 5A1945Z Respiratory Ventilation, 24-96 Consecutive Hours (ICD-10-PCS; principal; 2022-04-24)
PROC: 5A02210 Assistance with Cardiac Output using Balloon Pump, Continuous (ICD-10-PCS; 2022-04-24)
PROC: 0BH17EZ Insertion of Endotracheal Airway into Trachea, Via Natural or Artificial Opening (ICD-10-PCS; 2022-04-24)
PROC: 30233N1 Transfusion of Nonautologous Red Blood Cells into Peripheral Vein, Percutaneous Approach (ICD-10-PCS; 2022-04-24)
PROC: 06HY33Z Insertion of Infusion Device into Lower Vein, Percutaneous Approach (ICD-10-PCS; 2022-04-24)
PROC: 03HY32Z Insertion of Monitoring Device into Upper Artery, Percutaneous Approach (ICD-10-PCS; 2022-04-24)
PROC: 4A133B1 Monitoring of Arterial Pressure, Peripheral, Percutaneous Approach (ICD-10-PCS; 2022-04-24)
PROC: 4A133J1 Monitoring of Arterial Pulse, Peripheral, Percutaneous Approach (ICD-10-PCS; 2022-04-24)
PROC: 5A1223Z Performance of Cardiac Pacing, Continuous (ICD-10-PCS; 2022-04-24)
PROC: 5A12012 Performance of Cardiac Output, Single, Manual (ICD-10-PCS; 2022-04-25)
DX: A41.9 Sepsis, unspecified organism (principal); J96.01 Acute respiratory failure with hypoxia; K72.00 Acute and subacute hepatic failure without coma; E87.2 Acidosis; G93.1 Anoxic brain damage, not elsewhere classified; Z68.1 Body mass index [BMI] 19.9 or less, adult; E44.0 Moderate protein-calorie malnutrition; N17.9 Acute kidney failure, unspecified; E87.0 Hyperosmolality and hypernatremia; C78.00 Secondary malignant neoplasm of unspecified lung; K94.23 Gastrostomy malfunction; K22.9 Disease of esophagus, unspecified; M81.0 Age-related osteoporosis without current pathological fracture; R13.10 Dysphagia, unspecified; I25.10 Atherosclerotic heart disease of native coronary artery without angina pectoris; C80.1 Malignant (primary) neoplasm, unspecified; E78.00 Pure hypercholesterolemia, unspecified; I10 Essential (primary) hypertension; E11.9 Type 2 diabetes mellitus without complications; W18.39XA Other fall on same level, initial encounter; R77.8 Other specified abnormalities of plasma proteins; S01.81XA Laceration without foreign body of other part of head, initial encounter; D72.829 Elevated white blood cell count, unspecified; E78.5 Hyperlipidemia, unspecified; E87.5 Hyperkalemia; R10.32 Left lower quadrant pain; I49.01 Ventricular fibrillation; R57.0 Cardiogenic shock; Z85.42 Personal history of malignant neoplasm of other parts of uterus; Z87.891 Personal history of nicotine dependence; Z90.710 Acquired absence of both cervix and uterus; Y93.89 Activity, other specified; Y92.89 Other specified places as the place of occurrence of the external cause; Y99.8 Other external cause status
CPT/HCPCS: 12013; 33210; 33967; 36415; 36430; 36600; 70450; 70486; 71045; 74176; 80047; 80048; 80053; 81003; 82330; 82803; 82948; 83605; 83735; 84100; 84134; 84484; 85007; 85018; 85025; 85610; 85730; 86885; 86900; 86901; 86920; 87040; 87070; 92508; 92616; 92950; 93005; 93308; 94002; 94003; 94760; 97116; 97161; 97530; 99284; A4215; A4618; A6253; A6258; A6449; A7000; B4087; C1725; C1729; C1752; C1769; C1894; C9113; G0378; J0171; J0282; J0461; J0610; J0690; J0696; J1100; J1250; J1265; J1644; J1815; J2250; J2270; J2370; J2405; J2543; J2704; J3010; J3370; J3490; J7030; J7040; J7050; J7060; J7070; J7120; P9016; P9047; Q9963

== ENCOUNTER 2022-04-22 11:37 | Emergency (ER) | payer OTHER ==
[~2022-04-22] VITALS: Ht 157.5 cm; Wt 45.5 kg
[~2022-04-22 11:37] MED LIST changes: -DOPamine/D5W 400mg/250ml bag IV ONE; -amiodarone 50MG/ML inj IV ONE; -calcium chloride 100 MG/1 ML inj IV ONE; -ceFAZolin inj. 2,000 MG in dextrose 5%-water 100 ML IV ONE; -epiNEPHrine 0.1mg/ml 10ml syringe ONE; -famotidine 20mg tablet PO ONE; -sodium bicarbonate (8.4%) 1 mEq/ml syringe ONE
[2022-04-22 14:07] VITALS: BP 177/79
[2022-04-22] MEDS ORDERED: POTA-207 PO (14:36)
== END 2022-04-22 14:09 | disposition home or self-care (01) ==
LOC: ER 11:37
DX: S01.112A Laceration without foreign body of left eyelid and periocular area, initial encounter (principal); R51.9 Headache, unspecified; R13.10 Dysphagia, unspecified; Z79.899 Other long term (current) drug therapy; W19.XXXA Unspecified fall, initial encounter; Y93.89 Activity, other specified; Y92.89 Other specified places as the place of occurrence of the external cause; Y99.8 Other external cause status
CPT/HCPCS: 12013; 70450; 70486; 99284